=== PATIENT | female | born 2000 | race Caucasian/White ===

== ENCOUNTER 2020-01-14 14:49 | Emergency (ER) | payer BC ==
[2020-01-14] MEDS ORDERED: Docusate LIQ* 100 MG/10 ML UDC PO ONE (15:28)
--- NOTE | 2020-01-14 15:36 | ED ---
Throat Pain/Nasal Congestion - HPI Summary HPI Summary: Pt. is a 19 y.o female who presents to the ER for left ear pain times one day. Patient states [facility] a right ear pain and states she had a cerumen flushed and was placed on Augmentin for a right otitis media. Patient states they attempted to flush left ear without success. She has been placing Debrox drops without improvement. Symptoms are mild in severity. modifying factors. - History of Current Complaint Chief Complaint: EDEarPain Time Seen by Provider: 01/14/20 15:11 Hx Obtained From: Patient - Allergies/Home Medications Allergies/Adverse Reactions: Allergies Allergy/AdvReac Type Severity Reaction Status Date / Time No Known Allergies Allergy Verified 01/14/20 15:00 Home Medications: Home Medications Amoxicillin/Clavulanate TAB* [Augmentin TAB 875*] 1 tab PO BID 01/14/20 [ History Confirmed 01/14/20] Carbamide Peroxide 6.5% OTIC* [DEBROX 6.5% Otic*] 2 drop OTIC DAILY 01/14/20 [ History Confirmed 01/14/20] Fluticasone NASAL SPRAY 50MCG* [Flonase NASAL SPRAY 50MCG*] 1 spray BOTH NARES DAILY 01/14/20 [History Confirmed 01/14/20] Noreth-Ethinyl Estradiol/Iron [[id number]-Ijha-Rm 0.4-0.035(21)-75] 1 tab PO DAILY [History Confirmed 01/14/20] PMH/Surg Hx/FS Hx/Imm Hx Previously Healthy: Yes Infectious Disease History: No Infectious Disease History: Denies: Traveled Outside the [place] in Last 30 Days - Family History Known Family History: Positive: Non-Contributory - Social History Occupation: Student Lives: Dormitory/Roommates Alcohol Use: Occasionally Substance Use Type: Reports: None Smoking Status (MU): Never Smoked Tobacco Review of Systems - ROS Summary Review of Systems Summary: Amoxicillin/Clavulanate TAB* [Augmentin TAB 875*] 1 tab PO BID 01/14/20 [ History Confirmed 01/14/20] Carbamide Peroxide 6.5% OTIC* [DEBROX 6.5% Otic*] 2 drop OTIC DAILY 01/14/20 [ History Confirmed 01/14/20] Fluticasone NASAL SPRAY 50MCG* [Flonase NASAL SPRAY 50MCG*] 1 spray BOTH NARES DAILY 01/14/20 [History Confirmed 01/14/20] Noreth-Ethinyl Estradiol/Iron [Hhexy-Mpjv-Ka 0.4-0.035(21)-75] 1 tab PO DAILY [History Confirmed 01/14/20] Constitutional: Negative Negative: Fever ENT: Other - nasal congestion. Positive: Ear Ache Respiratory: Negative Negative: Cough Skin: Negative Positive: Headache All Other Systems Reviewed And Are Negative: Yes Physical Exam Triage Information Reviewed: Yes Vital Signs On Initial Exam: Initial Vitals Temp Pulse Resp BP Pulse Ox 98.5 F 82 18 136/87 100 01/14/20 14:56 01/14/20 14:56 01/14/20 14:56 01/14/20 14:56 01/14/20 14:56 Vital Signs Reviewed: Yes Appearance: Positive: Well-Appearing - Pt. sitting on bed, appears uncomfortable but nontoxic. Skin: Positive: Warm, Dry Head/Face: Positive: Normal Head/Face Inspection Eyes: Positive: Normal, EOMI, BAILEE ENT: Positive: Other - Right TM unremarkable. Cerum impaction noted to the left canal. Neck: Positive: Supple Neurological: Positive: Normal, CN Intact II-III Psychiatric: Positive: Affect/Mood Appropriate Procedures - Sedation Patient Received Moderate/Deep Sedation with Procedure: No Diagnostics - Vital Signs Vital Signs Temp Pulse Resp BP Pulse Ox 01/14/20 14:56 98.5 F 82 18 136/87 100 - Laboratory Lab Statement: Any lab studies that have been ordered have been reviewed, and results considered in the medical decision making process. EENT Course/Dx - Course Course Of Treatment: Pt. with left cerumen impaction. Colace place in ear to help soften wax. Warm water and H2O2 used to successfully flush left ear. Pt. tolerated well and is feeling much better. Ear examined and external canal is irritated, TM intact without infection. Pt. will f.u with health center and return if sxs change or worsen. - Differential Diagnoses Differential Diagnoses: Otitis Externa, Otitis Media - Diagnoses Provider Diagnoses: Cerumen impaction Discharge ED - Sign-Out/Discharge Documenting (check all that apply): Patient Departure - Discharge Plan Condition: Improved Disposition: HOME Patient Education Materials: Cerumen Impaction (ED) Referrals: [facility] [Primary Care Provider] - Additional Instructions: Follow up with [facility] if symptoms persist Can take tylenol or motrin for pain as directed Apply warm compress to help with pain Return to ER if symptoms change or worsen - Billing Disposition and Condition Condition: IMPROVED Disposition: Home - Attestation Statements Provider Attestation: I was available for consultation for this patient. I did not evaluate the patient or participate in any medical decision making or disposition decisions unless I am specifically named in the chart as having consulted on the patient. If I have consulted on the patient, please see my own ED note on the patient encounter. Darlene Dailey MD
[2020-01-14 16:16] VITALS: BP 123/71
== END 2020-01-14 16:14 | disposition home or self-care (01) ==
LOC: ED 14:49
DX: H61.22 Impacted cerumen, left ear (principal)
CPT/HCPCS: 99282; A9270-GY